=== PATIENT | female | born 1985 | race Caucasian/White ===

== ENCOUNTER 2017-10-07 20:09 | Inpatient (IN) | payer MEDICAID ==
[~2017-10-07] VITALS: Ht 162.6 cm; Wt 61.0 kg
[2017-10-07 22:31] LABS: BASOPHIL % 0.7 % (0-2); PLATELET COUNT 222 x10^3mcL (130-400); RED CELL DISTRIBUTION WIDTH 14.2 % (11.5-14.5)
[2017-10-07 22:37] LABS: CALCIUM 9.4 mg/dL (8.5-10.1); CARBON DIOXIDE 28.3 mmol/L (21-32); CHLORIDE SERUM 99 mmol/L (98-107); CREATININE SERUM 1.1 mg/dL (0.6-1.0); GFR1 > 60 mL/min; GLUCOSE SERUM 96 mg/dL (74-106); POTASSIUM SERUM 3.2 mmol/L (3.5-5.1); SODIUM SERUM 138 mmol/L (136-145)
[2017-10-07 22:46] LABS: ALKALINE PHOSPHATASE 65 U/L (46-116); ALT/SGPT 19 U/L (14-59); AST/SGOT 22 U/L (15-37); BILIRUBIN TOTAL 1.01 mg/dL (0.20-1.00); FREE T4 0.15 ng/dL (0.76-1.46)
[2017-10-07 22:47] LABS: UA SPECIFIC GRAVITY <=1.005 (1.005-1.035); microscopic required? YES; urine erythrocyte TRACE (NEGATIVE)
[2017-10-07 22:47] LABS: ALBUMIN 5.1 g/dL (3.4-5.0); TOTAL PROTEIN, SERUM 8.8 g/dL (6.4-8.2)
[2017-10-07 23:01] LABS: AMPHETAMINE QUAL UR NONE DETECTED (NEG <=1000)
[2017-10-08] MEDS ORDERED: METHIMAZOLE10 MG PO (02:57)
[2017-10-08 04:11] LABS: T3 TOTAL 0.35 ng/mL
[2017-10-08 04:12] LABS: CHOLESTEROL/HDL RATIO 3.5; MAGNESIUM 2.7 mg/dL (1.8-2.4)
[2017-10-08 04:30] LABS: FREE T4 0.16 ng/dL (0.76-1.46)
[2017-10-08 04:34] LABS: T4(THYROXINE) 0.1 ug/dL (4.7-13.3)
[2017-10-08 04:48] VITALS: BP 109/78
[2017-10-08 04:54] VITALS: BP 114/58
[2017-10-08 06:53] LABS: CALCIUM 8.7 mg/dL (8.5-10.1); CARBON DIOXIDE 27.2 mmol/L (21-32); CHLORIDE SERUM 104 mmol/L (98-107); CREATININE SERUM 0.9 mg/dL (0.6-1.0); GFR1 > 60 mL/min; GLUCOSE SERUM 91 mg/dL (74-106); POTASSIUM SERUM 3.2 mmol/L (3.5-5.1); SODIUM SERUM 139 mmol/L (136-145)
[2017-10-08 07:02] LABS: BASOPHIL % 0.6 % (0-2); PLATELET COUNT 197 x10^3mcL (130-400)
[2017-10-08 09:28] VITALS: BP 115/54
[2017-10-08 20:55] VITALS: BP 116/58
[2017-10-09 04:48] VITALS: BP 148/55
[2017-10-09 07:03] LABS: BASOPHIL % 0.9 % (0-2); PLATELET COUNT 170 x10^3mcL (130-400); RED CELL DISTRIBUTION WIDTH 14.3 % (11.5-14.5)
[2017-10-09 07:04] LABS: CALCIUM 8.6 mg/dL (8.5-10.1); CARBON DIOXIDE 28.8 mmol/L (21-32); CREATININE SERUM 1.2 mg/dL (0.6-1.0); MAGNESIUM 2.3 mg/dL (1.8-2.4); POTASSIUM SERUM 4.1 mmol/L (3.5-5.1)
[2017-10-09 09:34] VITALS: BP 107/57
[2017-10-09] MEDS ORDERED: SYN1 PO ×2 (10:08→13:24)
[2017-10-09] MEDS ORDERED: LEVAQUIN750 MG PO ×2 (10:11→13:24)
[2017-10-09 10:30] VITALS: BP 148/55
[2017-10-09] MEDS ORDERED: LAC PO ×2 (11:25→13:24)
[2017-10-09 12:56] VITALS: Ht 162.6 cm; Wt 61.0 kg
== END 2017-10-09 12:53 | disposition home or self-care (01) | DRG 424 ==
LOC: ED 20:09 → DU 10-08 02:56
PROVIDERS: Emergency Medicine; ADMIT Family Medicine
DX: E03.9 Hypothyroidism, unspecified (principal); E83.41 Hypermagnesemia; N39.0 Urinary tract infection, site not specified; E78.5 Hyperlipidemia, unspecified; D64.9 Anemia, unspecified; S61.511A Laceration without foreign body of right wrist, initial encounter; S61.512A Laceration without foreign body of left wrist, initial encounter; F41.8 Other specified anxiety disorders; R31.9 Hematuria, unspecified; E87.6 Hypokalemia; Z68.23 Body mass index [BMI] 23.0-23.9, adult; X78.1XXA Intentional self-harm by knife, initial encounter; Y92.009 Unspecified place in unspecified non-institutional (private) residence as the place of occurrence of the external cause
CPT/HCPCS: 83880; 84439; 94150; G0480; J1956; J3490; J7030; Q0092